=== PATIENT | female | born 1955 | race Caucasian/White ===

== ENCOUNTER 2018-07-23 20:27 | Observation (INO) ==
[2018-07-23] MEDS ORDERED: Sod Chloride 0.9% Inj 1,000 ML IV.SIG SCH ×2 (21:15→21:30)
--- NOTE | 2018-07-23 21:26 | ED ---
HPI General Chief Complaint: Altered Mental Status Stated Complaint: pt confused/evac Time Seen by Provider: 07/23/18 21:05 Source: EMS Mode of arrival: EMS Limitations: altered mental status History of Present Illness HPI narrative: Patient is 62-year-old female who was brought to the emergency room via EMS for evaluation of altered mental status. Patient was apparently found in bushes and was unable to answer any questions. Patient was brought to the emergency room as she has no idea on her, and patient does not who she is. Patient is unable to provide HPI, she cannot tell me her name and she just mumbles at bedside Related Data Home Medications Medication Instructions Recorded Confirmed benztropine 1 mg PO BID 07/23/18 07/23/18 demeclocycline 300 mg PO Q12H 07/23/18 07/23/18 fluoxetine 20 mg PO Q8AM 07/23/18 07/23/18 lisinopril 2.5 mg PO Q8AM 07/23/18 07/23/18 omeprazole 20 mg PO DAILY 07/23/18 07/23/18 risperidone [Risperdal] 1 mg PO Q8AM 07/23/18 07/23/18 risperidone [Risperdal] 4 mg PO HS 07/23/18 07/23/18 tiotropium bromide [Spiriva with 1 cap INHALATION DAILY 07/23/18 07/23/18 HandiHaler] Allergies Allergy/AdvReac Type Severity Reaction Status Date / Time bee venom protein (honey bee) Allergy unknown Verified 07/23/18 23:25 [Bee sting] ibuprofen Allergy unknown Verified 07/23/18 23:25 Review of Systems ROS: all other systems reviewed are negative [facility] Medical History Medical History Medical history unknown (Acute) Surgical history unknown (Acute) Social History Social History Substance History: No History of Abuse Second Hand Smoke Exposure: No Smoking Status: Current every day smoker Tobacco Type: Cigarettes How Often Do You Have a Drink Containing Alcohol: Never Recent Travel in [facility] within the Last 8 Weeks: No Recent Out of Country Travel within the Last 8 Weeks: No Immunization History Tetanus Immunization: Unable to Assess Exam Narrative Exam Narrative: GENERAL: Confused, patient not alert or oriented x 3 SKIN: Focused skin assessment warm/dry. HEAD: Atraumatic. Normocephalic. EYES: Pupils equal and round. No scleral icterus. No injection or drainage. ENT: No nasal bleeding or discharge. Mucous membranes pink and moist. NECK: Trachea midline. No JVD. CARDIOVASCULAR: Regular rate and rhythm. No murmur appreciated. RESPIRATORY: No accessory muscle use. Clear to auscultation. Breath sounds equal bilaterally. GASTROINTESTINAL: Abdomen soft, non-tender, nondistended. Hepatic and splenic margins not palpable. MUSCULOSKELETAL: No obvious deformities. No clubbing. No cyanosis. No edema. NEUROLOGICAL: Awake and alert. PSYCHIATRIC: Flat mood and affect Course Initial Documented Vital Signs Temperature 97 F L 07/23/18 20:28 Pulse Rate 93 H 07/23/18 20:28 Respiratory Rate 18 07/23/18 20:28 Blood Pressure 201/107 H 07/23/18 20:28 Pulse Oximetry 99 07/23/18 20:28 Last Documented Vital Signs Temperature 98.8 F 07/25/18 17:18 Pulse Rate 90 07/25/18 17:18 Respiratory Rate 20 07/25/18 17:18 Blood Pressure 133/83 07/25/18 17:18 Pulse Oximetry 95 07/25/18 17:18 Medical Decision Making MDM Narrative Medical decision making narrative: During the course of the patients emergency department visit, the patients history, examination, and differential diagnosis were reviewed with the patient. The patient was placed on a vice president of software development with oximetry and frequent blood pressure monitoring. The patient had an IV access obtained and blood work sent for analysis. Patient has paperwork from [facility], call was made to [facility], they reported that patient was last seen at 1700, she signed herself out to go to the store, they did not realize that patient never came back. They will send her paperwork with her medical list and medication list. The patients laboratory studies were reviewed Radiology studies were reviewed [facility] did call back, reports that they started her on democlocyline and risperdol was adjusted today as she has history of paranoid schizophrenia - they now report that patient checked herself out of the living facility around 8:30AM to go get coffee and she never returned. Her hyponatremia is at baseline as per [facility]. patient will require admission to the hospital for observation for encephalopathy Medical Screen Exam Complete: Yes Emergency Medical Condition: Yes Differential Diagnosis Differential Diagnosis: Encephalopathy, drug abuse, electrolyte abnormality, intracranial hemorrhage, CVA, TIA Medical Records Medical records reviewed: Yes I reviewed the patient's medical records. Lab Data Lab results reviewed: Yes I reviewed the patient's lab results. Result diagrams: 07/24/18 04:05 07/25/18 06:17 Lab Results 07/23/18 07/23/18 07/23/18 Range/Units 20:55 20:55 20:55 WBC 12.2 H (4.0-11.0) th/mm3 RBC 3.82 L (4.00-5.30) mil/mm3 Hgb 11.9 (11.6-15.3) gm/dL Hct 34.5 L (35.0-46.0) % MCV 90.4 (80.0-100.0) fL MCH 31.2 (27.0-34.0) pg MCHC 34.5 (32.0-36.0) % RDW 14.2 (11.6-17.2) % Plt Count 226 (150-450) th/mm3 MPV 8.0 (7.0-11.0) fL Neut % (Auto) 82.3 H (16.0-70.0) % Lymph % (Auto) 11.7 (9.0-44.0) % Lincoln % (Auto) 5.3 (0.0-8.0) % Eos % (Auto) 0.5 (0.0-4.0) % Baso % (Auto) 0.2 (0.0-2.0) % Neut # (Auto) 10.1 H (1.8-7.7) th/mm3 Lymph # (Auto) 1.4 (1.0-4.8) th/mm3 Lincoln # (Auto) 0.6 (0.0-0.9) th/mm3 Eos # (Auto) 0.1 (0.0-0.4) th/mm3 Baso # (Auto) 0.0 (0.0-0.2) th/mm3 WBC Differential . Differential Comment Auto diff final PT 10.3 (9.8-11.6) sec INR 1.0 Ratio APTT 28.0 (23.4-31.7) sec Sodium 125 L (136-145) meq/L Potassium 4.4 (3.5-5.1) meq/L Chloride 93 L (98-107) meq/L Carbon Dioxide 21.2 (21.0-32.0) meq/L Anion Gap 11 (5-15) meq/L BUN 30 H (7-18) mg/dL Creatinine 1.49 H (0.50-1.00) mg/dL Estimated GFR 35 L (>89) mL/min Random Glucose 113 H (74-106) mg/dL Calcium 8.4 L (8.5-10.1) mg/dL Magnesium 1.6 (1.5-2.5) mg/dL Total Bilirubin 0.6 (0.2-1.0) mg/dL AST 22 (15-37) U/L ALT 22 (10-53) U/L Alkaline Phosphatase 83 (45-117) U/L Ammonia (11-32) mcmol/L Total Creatine Kinase 229 H (26-192) U/L CK-MB (CK-2) 2.2 (0.5-3.6) ng/mL CK-MB (CK-2) % 1.0 (0.0-4.0) % Troponin I Less than 0.02 L (0.02-0.05) ng/mL Total Protein 6.8 (6.4-8.2) g/dL Albumin 3.3 L (3.4-5.0) g/dL Urine Color (Yellw/Straw) Urine Clarity (Clear) Urine pH (5.0-8.5) Ur Specific Jonancy (1.002-1.035) Urine Protein (Neg-Trace) mg/dL Urine Glucose (UA) (Negative) mg/dL Urine Ketones (Negative) mg/dL Urine Occult Blood (Negative) Urine Nitrate (Negative) Urine Bilirubin (Negative) Urine Urobilinogen (Less than 2) mg/dL Ur Leukocyte Esterase (Negative) Urine RBC (0-3) /hpf Urine WBC (0-5) /hpf Ur Squamous Epith Cells (0-5) /hpf Amorphous Sediment (None) /hpf Hyaline Casts (0-3) /lpf Urine Mucus (Occasional) /lpf Micro UA Comment Ur Microscopic Review Urine Culture Comments Urine Opiates Screen (Neg) Ur Barbiturates Screen (Neg) Ur Amphetamines Screen (Neg) U Benzodiazepines Scrn (Neg) Urine Cocaine Screen (Neg) U Cannabinoids Screen (Neg) Serum Alcohol Less than 3 (0-5) mg/dL 07/23/18 07/23/18 07/23/18 Range/Units 21:20 22:15 22:15 WBC (4.0-11.0) th/mm3 RBC (4.00-5.30) mil/mm3 Hgb (11.6-15.3) gm/dL Hct (35.0-46.0) % MCV (80.0-100.0) fL MCH (27.0-34.0) pg MCHC (32.0-36.0) % RDW (11.6-17.2) % Plt Count (150-450) th/mm3 MPV (7.0-11.0) fL Neut % (Auto) (16.0-70.0) % Lymph % (Auto) (9.0-44.0) % Lincoln % (Auto) (0.0-8.0) % Eos % (Auto) (0.0-4.0) % Baso % (Auto) (0.0-2.0) % Neut # (Auto) (1.8-7.7) th/mm3 Lymph # (Auto) (1.0-4.8) th/mm3 Lincoln # (Auto) (0.0-0.9) th/mm3 Eos # (Auto) (0.0-0.4) th/mm3 Baso # (Auto) (0.0-0.2) th/mm3 WBC Differential Differential Comment PT (9.8-11.6) sec INR Ratio APTT (23.4-31.7) sec Sodium (136-145) meq/L Potassium (3.5-5.1) meq/L Chloride (98-107) meq/L Carbon Dioxide (21.0-32.0) meq/L Anion Gap (5-15) meq/L BUN (7-18) mg/dL Creatinine (0.50-1.00) mg/dL Estimated GFR (>89) mL/min Random Glucose (74-106) mg/dL Calcium (8.5-10.1) mg/dL Magnesium (1.5-2.5) mg/dL Total Bilirubin (0.2-1.0) mg/dL AST (15-37) U/L ALT (10-53) U/L Alkaline Phosphatase (45-117) U/L Ammonia Less than 10 L (11-32) mcmol/L Total Creatine Kinase (26-192) U/L CK-MB (CK-2) (0.5-3.6) ng/mL CK-MB (CK-2) % (0.0-4.0) % Troponin I (0.02-0.05) ng/mL Total Protein (6.4-8.2) g/dL Albumin (3.4-5.0) g/dL Urine Color Yellow (Yellw/Straw) Urine Clarity Hazy H (Clear) Urine pH 6.0 (5.0-8.5) Ur Specific Jonancy 1.008 (1.002-1.035) Urine Protein Negative (Neg-Trace) mg/dL Urine Glucose (UA) Negative (Negative) mg/dL Urine Ketones Negative (Negative) mg/dL Urine Occult Blood Large H (Negative) Urine Nitrate Negative (Negative) Urine Bilirubin Negative (Negative) Urine Urobilinogen Less than 2 (Less than 2) mg/dL Ur Leukocyte Esterase Negative (Negative) Urine RBC 86 H (0-3) /hpf Urine WBC 1 (0-5) /hpf Ur Squamous Epith Cells <1 (0-5) /hpf Amorphous Sediment Rare H (None) /hpf Hyaline Casts 1 (0-3) /lpf Urine Mucus Few H (Occasional) /lpf Micro UA Comment Cath-culture not ind Ur Microscopic Review Not Reportable Urine Culture Comments Cath-cult not ind Urine Opiates Screen Neg (Neg) Ur Barbiturates Screen Neg (Neg) Ur Amphetamines Screen Neg (Neg) U Benzodiazepines Scrn Neg (Neg) Urine Cocaine Screen Neg (Neg) U Cannabinoids Screen Neg (Neg) Serum Alcohol (0-5) mg/dL 07/24/18 07/24/18 07/24/18 Range/Units 04:05 04:05 12:49 WBC 8.2 (4.0-11.0) th/mm3 RBC 3.46 L (4.00-5.30) mil/mm3 Hgb 10.9 L (11.6-15.3) gm/dL Hct 30.8 L (35.0-46.0) % MCV 89.0 (80.0-100.0) fL MCH 31.6 (27.0-34.0) pg MCHC 35.5 (32.0-36.0) % RDW 13.7 (11.6-17.2) % Plt Count 202 (150-450) th/mm3 MPV 7.6 (7.0-11.0) fL Neut % (Auto) 65.7 (16.0-70.0) % Lymph % (Auto) 25.1 (9.0-44.0) % Lincoln % (Auto) 8.0 (0.0-8.0) % Eos % (Auto) 0.7 (0.0-4.0) % Baso % (Auto) 0.5 (0.0-2.0) % Neut # (Auto) 5.4 (1.8-7.7) th/mm3 Lymph # (Auto) 2.1 (1.0-4.8) th/mm3 Lincoln # (Auto) 0.7 (0.0-0.9) th/mm3 Eos # (Auto) 0.1 (0.0-0.4) th/mm3 Baso # (Auto) 0.0 (0.0-0.2) th/mm3 WBC Differential . Differential Comment Auto diff final PT (9.8-11.6) sec INR Ratio APTT (23.4-31.7) sec Sodium 133 L 134 L (136-145) meq/L Potassium 3.8 3.8 (3.5-5.1) meq/L Chloride 103 D 103 (98-107) meq/L Carbon Dioxide 22.7 24.5 (21.0-32.0) meq/L Anion Gap 7 7 (5-15) meq/L BUN 26 H 19 H (7-18) mg/dL Creatinine 1.10 H 1.25 H (0.50-1.00) mg/dL Estimated GFR 50 L 43 L (>89) mL/min Random Glucose 82 106 (74-106) mg/dL Calcium 8.0 L 8.0 L (8.5-10.1) mg/dL Magnesium (1.5-2.5) mg/dL Total Bilirubin (0.2-1.0) mg/dL AST (15-37) U/L ALT (10-53) U/L Alkaline Phosphatase (45-117) U/L Ammonia (11-32) mcmol/L Total Creatine Kinase (26-192) U/L CK-MB (CK-2) (0.5-3.6) ng/mL CK-MB (CK-2) % (0.0-4.0) % Troponin I (0.02-0.05) ng/mL Total Protein (6.4-8.2) g/dL Albumin (3.4-5.0) g/dL Urine Color (Yellw/Straw) Urine Clarity (Clear) Urine pH (5.0-8.5) Ur Specific Jonancy (1.002-1.035) Urine Protein (Neg-Trace) mg/dL Urine Glucose (UA) (Negative) mg/dL Urine Ketones (Negative) mg/dL Urine Occult Blood (Negative) Urine Nitrate (Negative) Urine Bilirubin (Negative) Urine Urobilinogen (Less than 2) mg/dL Ur Leukocyte Esterase (Negative) Urine RBC (0-3) /hpf Urine WBC (0-5) /hpf Ur Squamous Epith Cells (0-5) /hpf Amorphous Sediment (None) /hpf Hyaline Casts (0-3) /lpf Urine Mucus (Occasional) /lpf Micro UA Comment Ur Microscopic Review Urine Culture Comments Urine Opiates Screen (Neg) Ur Barbiturates Screen (Neg) Ur Amphetamines Screen (Neg) U Benzodiazepines Scrn (Neg) Urine Cocaine Screen (Neg) U Cannabinoids Screen (Neg) Serum Alcohol (0-5) mg/dL 07/25/18 Range/Units 06:17 WBC (4.0-11.0) th/mm3 RBC (4.00-5.30) mil/mm3 Hgb (11.6-15.3) gm/dL Hct (35.0-46.0) % MCV (80.0-100.0) fL MCH (27.0-34.0) pg MCHC (32.0-36.0) % RDW (11.6-17.2) % Plt Count (150-450) th/mm3 MPV (7.0-11.0) fL Neut % (Auto) (16.0-70.0) % Lymph % (Auto) (9.0-44.0) % Lincoln % (Auto) (0.0-8.0) % Eos % (Auto) (0.0-4.0) % Baso % (Auto) (0.0-2.0) % Neut # (Auto) (1.8-7.7) th/mm3 Lymph # (Auto) (1.0-4.8) th/mm3 Lincoln # (Auto) (0.0-0.9) th/mm3 Eos # (Auto) (0.0-0.4) th/mm3 Baso # (Auto) (0.0-0.2) th/mm3 WBC Differential Differential Comment PT (9.8-11.6) sec INR Ratio APTT (23.4-31.7) sec Sodium 133 L (136-145) meq/L Potassium 3.8 (3.5-5.1) meq/L Chloride 103 (98-107) meq/L Carbon Dioxide 21.7 (21.0-32.0) meq/L Anion Gap 8 (5-15) meq/L BUN 14 (7-18) mg/dL Creatinine 1.02 H (0.50-1.00) mg/dL Estimated GFR 55 L (>89) mL/min Random Glucose 65 L (74-106) mg/dL Calcium 8.3 L (8.5-10.1) mg/dL Magnesium 1.8 (1.5-2.5) mg/dL Total Bilirubin (0.2-1.0) mg/dL AST (15-37) U/L ALT (10-53) U/L Alkaline Phosphatase (45-117) U/L Ammonia (11-32) mcmol/L Total Creatine Kinase (26-192) U/L CK-MB (CK-2) (0.5-3.6) ng/mL CK-MB (CK-2) % (0.0-4.0) % Troponin I (0.02-0.05) ng/mL Total Protein (6.4-8.2) g/dL Albumin (3.4-5.0) g/dL Urine Color (Yellw/Straw) Urine Clarity (Clear) Urine pH (5.0-8.5) Ur Specific Jonancy (1.002-1.035) Urine Protein (Neg-Trace) mg/dL Urine Glucose (UA) (Negative) mg/dL Urine Ketones (Negative) mg/dL Urine Occult Blood (Negative) Urine Nitrate (Negative) Urine Bilirubin (Negative) Urine Urobilinogen (Less than 2) mg/dL Ur Leukocyte Esterase (Negative) Urine RBC (0-3) /hpf Urine WBC (0-5) /hpf Ur Squamous Epith Cells (0-5) /hpf Amorphous Sediment (None) /hpf Hyaline Casts (0-3) /lpf Urine Mucus (Occasional) /lpf Micro UA Comment Ur Microscopic Review Urine Culture Comments Urine Opiates Screen (Neg) Ur Barbiturates Screen (Neg) Ur Amphetamines Screen (Neg) U Benzodiazepines Scrn (Neg) Urine Cocaine Screen (Neg) U Cannabinoids Screen (Neg) Serum Alcohol (0-5) mg/dL Imaging Data Attestation: I personally reviewed and interpreted this imaging study as follows : Radiologist's impression: Chest X-Ray 07/23/18 21:07 CONCLUSION: Negative for an acute process Head CT 07/23/18 21:07 CONCLUSION: 1. Negative CT Head non contrast. . Discharge Plan Discharge Disposition Patient Disposition: 30 Still Patient Discharge Condition Condition: Stable Discharge Order Discharge Orders: Discharge Order (Routine); Ordered 07/25/18 Ordered By: Channing Guerrero Discharge Details Anticipated Discharge Date: 07/25/18 Diagnosis: Encephalopathy, Hyponatremia Physicians Team ED Provider: Cara Huffman Primary Care Provider: UNKNOWN, Attending Provider: Channing Guerrero Other Providers: [employer],Insurance ; [facility],Agency ; Guille Anderson Status ED Status: Left Department Discharge Information Discharge Date/Time: 07/24/18 11:28
--- NOTE | 2018-07-23 21:33 | XR ---
EXAM DATE: 07/23/2018 9:31 PM EST AGE/SEX: 62 years / Female INDICATIONS: Chest pain. CLINICAL DATA: This is the patient's initial encounter. Patient reports that signs and symptoms have been present for 1 day and indicates a pain score of 4/10. MEDICAL/SURGICAL HISTORY: None. None. COMPARISON: No prior exams available for comparison. FINDINGS: A single AP view of the chest demonstrates the lungs to be symmetrically aerated without evidence of mass, infiltrate or effusion. The cardiomediastinal contours are unremarkable. Osseous structures a re intact. CONCLUSION: Negative for an acute process Electronically signed by: Mike Callejas MD 07/23/2018 9:32 PM EST
[2018-07-23 21:43] LABS: Baso % (Auto) 0.2 % (0.0-2.0); Eos # (Auto) 0.1 th/mm3 (0.0-0.4); Eos % (Auto) 0.5 % (0.0-4.0); Hematocrit 34.5 % (35.0-46.0); Hemoglobin 11.9 gm/dL (11.6-15.3); Lymph # (Auto) 1.4 th/mm3 (1.0-4.8); Lymph % (Auto) 11.7 % (9.0-44.0); Mean Corpuscular HGB Conc 34.5 % (32.0-36.0); Mean Corpuscular Hemoglobin 31.2 pg (27.0-34.0); Mean Corpuscular Volume 90.4 fL (80.0-100.0); Mono # (Auto) 0.6 th/mm3 (0.0-0.9); Mono % (Auto) 5.3 % (0.0-8.0); Neut # (Auto) 10.1 th/mm3 (1.8-7.7); Neut % (Auto) 82.3 % (16.0-70.0); Platelet Count 226 th/mm3 (150-450); Red Blood Count 3.82 mil/mm3 (4.00-5.30); Red Cell Distribution Width 14.2 % (11.6-17.2); White Blood Count 12.2 th/mm3 (4.0-11.0)
[2018-07-23 21:50] LABS: Prothrombin Time 10.3 sec (9.8-11.6)
[2018-07-23 22:05] LABS: Albumin 3.3 g/dL (3.4-5.0); Anion Gap 11 meq/L (5-15); Blood Urea Nitrogen 30 mg/dL (7-18); Calcium 8.4 mg/dL (8.5-10.1); Carbon Dioxide 21.2 meq/L (21.0-32.0); Chloride 93 meq/L (98-107); Glomerular Filtration Rate 35 mL/min (>89); Glucose,Random 113 mg/dL (74-106); Magnesium 1.6 mg/dL (1.5-2.5); Potassium 4.4 meq/L (3.5-5.1); Sodium 125 meq/L (136-145)
[2018-07-23 22:06] LABS: Alanine Aminotransferase 22 U/L (10-53); Aspartate Aminotransferase 22 U/L (15-37)
[2018-07-23 22:10] LABS: Alkaline Phosphatase 83 U/L (45-117); Creatine Kinase 229 U/L (26-192); Total Protein 6.8 g/dL (6.4-8.2)
[2018-07-23 22:23] LABS: Creatine Kinase MB 2.2 ng/mL (0.5-3.6)
[2018-07-23 22:46] LABS: Amorphous Sediment,Urine Rare /hpf; Bilirubin,Urine Negative (Negative); Clarity,Urine Hazy (Clear); Color,Urine Yellow (Yellw/Straw); Glucose,Urine (UA) Negative (Negative); Hyaline Casts,Urine 1 /lpf (0-3); Leukocyte Esterase,Urine Negative (Negative); Mucus,Urine Few /lpf (Occasional); Nitrite,Urine Negative (Negative); Specific Gravity,Urine 1.008 (1.002-1.035); Squamous Epithelial Cell,Urine <1 /hpf (0-5)
[2018-07-23 22:48] LABS: Amphetamine Screen,Urine Neg (Neg); Barbiturate Screen,Urine Neg (Neg); Cannabinoid Screen,Urine Neg (Neg); Cocaine Screen,Urine Neg (Neg)
[2018-07-23 22:49] LABS: Opiate Screen,Urine Neg (Neg)
--- NOTE | 2018-07-23 23:13 | CT ---
EXAM DATE: 07/23/2018 11:03 PM EST AGE/SEX: 62 years / Female INDICATIONS: Altered mental status. CLINICAL DATA: This is the patient's initial encounter. Patient reports that signs and symptoms have been present for 1 day and indicates a pain score of Nonresponsive. MEDICAL/SURGICAL HISTORY: Non-responsive. Non-responsive. RADIATION DOSE: 34.78 CTDI (mGy) COMPARISON: No prior exams available for comparison. TECHNIQUE: CT of the head without contrast. Using automated exposure control and adjustment of the mA and/or kV according to patient size, radiation dose was kept as low as reasonably achievable to ob tain optimal diagnostic quality images. DICOM format image data is available electronically for revi ew and comparison. FINDINGS: Cerebrum: The ventricles are normal for age. No evidence of midline shift, mass lesion, hemorrhage or acute infarction. No extraaxial fluid collections are seen. Posterior Fossa: The cerebellum and brainstem are intact. The 4th ventricle is midline. The cerebe llopontine angle is unremarkable. Extracranial: The visualized portion of the orbits is intact. Skull: The calvaria is intact. No evidence of skull fracture. CONCLUSION: 1. Negative CT Head non contrast. . Electronically signed by: David Aviles MD 07/23/2018 11:12 PM EST
[2018-07-24] MEDS ORDERED: Acetaminophen 325 MG Tablet PO PRN (00:15)
[2018-07-24] MEDS ORDERED: Bisacodyl 10 MG Supp RECTAL PRN (00:15)
--- NOTE | 2018-07-24 00:25 | P.HPIM ---
History of Present Illness Service: [facility] Primary Care Physician: UNKNOWN Chief Complaint: Altered mental status History of Present Illness: Ms. Landis is a 62-year-old female with a history of anxiety, chronic obstructive pulmonary disease, chronic kidney disease, depressive disorder, congestive heart failure, hyperosmolar hyponatremia, insomnia, paranoid schizophrenia, and hypertension who presented to the emergency room on 2017 for evaluation of altered mental status. The patient is a resident at [facility] and reportedly signed herself out to get coffee at 8:30 AM. The facility did not realize that the patient had not come back until they were called from the emergency room physician. The patient recently was started on demeclocycline and also had Risperdal adjusted for history of paranoid schizophrenia. Patient seen in ER with daughter at bedside. Patient's daughter indicates that her mother is in an FDC because of schizophrenia and needs assistance with medication management but has been able to function well. She spoke with her two days ago and she was in her normal state of health. At the time of my visit , the patient has is demonstrating tremors, cannot tell me her name or how she got here or where she is, she is also demonstrating excessive eye blinking and her speech seems stuttered. The patient denies any recent illness but she is a poor historian at the time of my visit. According to the ER nurse, the patient' s medications have recently been adjusted: Risperdal was increased around 11 to include AM dosing and demeclocycline was added about the same time. The patient is also on Cogentin but their is no history of Parkinson's disease per the patient's daughter. The patient's daughter indicates that "every time I turn around, they are adding a new medication". . Review of Systems unobtainable due to mental condition PMFSH - History History Provided By: Patient - Medical History Medical History: Medical History (Last Updated 07/24/18 @ 00:11 by ELIAS Yu) Anxiety disorder Bronchitis, chronic obstructive Chronic kidney disease (CKD) Depressive disorder Heart failure Hypo-osmolar hyponatremia Insomnia Paranoid schizophrenia Primary hypertension Surgical history unknown Syncope and collapse - Surgical History Surgical History: Surgical History (Last Updated 07/24/18 @ 00:11 by ELIAS Yu) Surgical history unknown - Family History Family History: Family History (Last Updated 07/24/18 @ 00:11 by ELIAS Yu) Other Family history unknown - Social History I have reviewed the patient's Social History: Yes - Tobacco History Tobacco Use In Past 30 Days: Yes Smoking Status: Current every day smoker Tobacco Type: Cigarettes - Alcohol History How Often Do You Have a Drink Containing Alcohol: Unable to Obtain - Substance Use History Substance History: Unable to Obtain - Travel History Recent Travel in the [place] Within the Last 8 Weeks: No Recent Travel Out of the Country Within the Last 8 Weeks: No - Immunization History Tetanus Immunization: Unable to Assess Medications and Allergies Active Medications: Active Medications Sodium Chloride (Ns Flush) 2 ml IV.FLUSH PRN PRN PRN Reason: FLUSH AFTER USING IV ACCESS Allergies Allergy/AdvReac Type Severity Reaction Status Date / Time bee venom protein (honey bee) Allergy unknown Verified 07/23/18 23:25 [Bee sting] ibuprofen Allergy unknown Verified 07/23/18 23:25 Home Medications Medication Instructions Recorded Confirmed Type benztropine 1 mg PO BID 07/23/18 07/23/18 History demeclocycline 300 mg PO Q12H 07/23/18 07/23/18 History fluoxetine 20 mg PO Q8AM 07/23/18 07/23/18 History lisinopril 2.5 mg PO Q8AM 07/23/18 07/23/18 History omeprazole 20 mg PO DAILY 07/23/18 07/23/18 History risperidone [Risperdal] 1 mg PO Q8AM 07/23/18 07/23/18 History risperidone [Risperdal] 4 mg PO HS 07/23/18 07/23/18 History tiotropium bromide [Spiriva with 1 cap INHALATION DAILY 07/23/18 07/23/18 History HandiHaler] Exam Vital signs: Vital Signs 07/23/18 20:28 07/23/18 20:50 Temperature 97 F L 97.4 F L Pulse Rate 93 H 102 H Respiratory Rate 18 20 Blood Pressure 201/107 H 176/80 H Pulse Oximetry 99 100 Intake & Output 07/23/18 07/23/18 07/24/18 06:59 18:59 06:59 Intake Total 1999 Balance 1999 Weight 78.925 kg Intake: IV 1999 NS Inj 1,000 ML @ 1000 mls/hr 1999 IV.SIG BOLUS DEBBIE Rx#:[id number] Narrative: GENERAL: This is an older female patient who appears confused and somewhat disheveled. SKIN: No rashes. Cool and dry. HEAD: Atraumatic. Normocephalic. EYES: No scleral icterus. No injection or drainage. ENT: Nose without bleeding, purulent drainage. NECK: Trachea midline. No JVD or lymphadenopathy. CARDIOVASCULAR: Regular rate and rhythm without murmurs, gallops, or rubs. RESPIRATORY: Clear to auscultation. Breath sounds equal bilaterally. No wheezes , rales, or rhonchi. GASTROINTESTINAL: Abdomen soft, non-tender, nondistended. No guarding. MUSCULOSKELETAL: Extremities without clubbing, cyanosis, or edema. No calf tenderness. NEUROLOGICAL: Awake and alert. Patient is demonstrating tremors, cannot tell me her name or how she got here or where she is, she is also demonstrating excessive eye blinking and her speech seems stuttered. . Results - Labs CBC & Chem 7: 07/23/18 20:55 07/23/18 20:55 Labs: Short CBC 07/23/18 Range/Units 20:55 WBC 12.2 H (4.0-11.0) th/mm3 Hgb 11.9 (11.6-15.3) gm/dL Hct 34.5 L (35.0-46.0) % Plt Count 226 (150-450) th/mm3 BMP 07/23/18 20:55 Sodium 125 L Potassium 4.4 Chloride 93 L Carbon Dioxide 21.2 BUN 30 H Creatinine 1.49 H Calcium 8.4 L Cardiac Enzymes 07/23/18 Range/Units 20:55 Total Creatine Kinase 229 H (26-192) U/L CK-MB (CK-2) 2.2 (0.5-3.6) ng/mL Troponin I Less than 0.02 L (0.02-0.05) ng/mL Liver Function 07/23/18 Range/Units 20:55 Total Bilirubin 0.6 (0.2-1.0) mg/dL AST 22 (15-37) U/L ALT 22 (10-53) U/L Alkaline Phosphatase 83 (45-117) U/L Albumin 3.3 L (3.4-5.0) g/dL Urine 11/26/18 Range/Units 22:15 Urine Color Yellow (Yellw/Straw) Urine Clarity Hazy H (Clear) Urine pH 6.0 (5.0-8.5) Ur Specific [place] 1.008 (1.002-1.035) Urine Protein Negative (Neg-Trace) mg/dL Urine Glucose (UA) Negative (Negative) mg/dL - Imaging Impressions Chest X-Ray 07/23/18 21:07 CONCLUSION: Negative for an acute process Head CT 07/23/18 21:07 CONCLUSION: 1. Negative CT Head non contrast. . Caprini VTE Risk Assessment Caprini VTE Risk Assessment: Moderate/High Risk (score >= 2) Caprini Risk Assessment Model: Point Value = 1 Point Value = 2 Point Value = 3 Point Value = 5 Age 41-60 Minor surgery BMI > 25 kg/m2 Swollen legs Varicose veins or History of unexplained or recurrent spontaneous Oral contraceptives or hormone replacement Sepsis (< 1 month) Serious lung disease, including pneumonia (< 1 month) Abnormal pulmonary function Acute myocardial infarction Congestive heart failure (< 1 month) History of inflammatory bowel disease Medical patient at bed rest Age 61-74 Arthroscopic surgery Major open surgery (> 45 min) Laparoscopic surgery (> 45 min) Malignancy Confined to bed (> 72 hours) Immobilizing plaster cast Central venous access Age >= 75 History of VTE Family history of VTE Factor V Leiden Prothrombin [id number] Lupus anticoagulant Anticardiolipin antibodies Elevated serum homocysteine Heparin-induced thrombocytopenia Other congenital or acquired thrombophilia Stroke (< 1 month) Elective arthroplasty Hip, pelvis, or leg fracture Acute spinal cord injury (< 1 month) Prophylaxis Regimen: Total Risk Factor Score Risk Level Prophylaxis Regimen 0-1 Low Early ambulation 2 Moderate Order ONE of the following: *Sequential Compression Device (SCD) *Heparin 5000 units SQ BID 3-4 Higher Order ONE of the following medications: *Heparin 5000 units SQ TID *Enoxaparin/Lovenox 40 mg SQ daily (WT < 150 kg, CrCl > 30 mL/min) *Enoxaparin/Lovenox 30 mg SQ daily (WT < 150 kg, CrCl > 10-29 mL/min) *Enoxaparin/Lovenox 30 mg SQ BID (WT < 150 kg, CrCl > 30 mL/min) AND/OR *Sequential Compression Device (SCD) 5 or more Highest Order ONE of the following medications: *Heparin 5000 units SQ TID (Preferred with Epidurals) *Enoxaparin/Lovenox 40 mg SQ daily (WT < 150 kg, CrCl > 30 mL/min) *Enoxaparin/Lovenox 30 mg SQ daily (WT < 150 kg, CrCl > 10-29 mL/min) *Enoxaparin/Lovenox 30 mg SQ BID (WT < 150 kg, CrCl > 30 mL/min) AND *Sequential Compression Device (SCD) Assessment and Plan - Plan Ms. Landis is a 62-year-old female with a history of anxiety, chronic obstructive pulmonary disease, chronic kidney disease, depressive disorder, congestive heart failure, hyperosmolar hyponatremia, insomnia, paranoid schizophrenia, and hypertension who presented to the emergency room on 2017 for evaluation of altered mental status. Encephalopathy with involuntary muscle movements (though it's hard to know if this is behavioral - symptoms diminish somewhat when you speak with patient) -concern for polypharmacy with recent medication increase in antipsychotic medication -demonstrating tremors, she is also demonstrating excessive eye blinking and her speech seems stuttered. -Head CT negative -Chest x-ray negative for acute process -Urinalysis not consistent with UTI -Toxicology negative -Neurochecks every 4 hours -Hold Cogentin and Risperdal a.m. dose (I do not wish to abruptly stop without psychiatry consultation) to see if symptoms improve -Consult to psychiatry for assistance with medication adjustments -Consult to neurology - appreciate assistance in evaluating this patient's dystonic movements -Consider brain MRI Renal insufficiency -suspect acute on chronic secondary to dehydration -BUN 30, creatinine 1.49, estimated GFR 35 -IV fluid hydration with normal saline at 100 cc/h -Monitor I&O's -Avoid nephrotoxins Hyponatremia -Sodium 125 -at patient's baseline according to the emergency room physician -continue home Demeclocycline -Continue to monitor COPD -resume home spiriva -Add duo nebulizers as needed DVT prophylaxis -Heparin 5000 units subcu every 8 hours Discussed Condition With: Dr. Martin .
[2018-07-24] MEDS: Sod Chloride 0.9% Inj 1,000 ML IV.CONT SCH ×2 (00:50→09:28)
[2018-07-24] MEDS: Heparin - SQ 10,000 UNITS/ML Vial SQ SCH ×4 (00:53→21:38)
[2018-07-24 04:32] LABS: Baso % (Auto) 0.5 % (0.0-2.0); Eos # (Auto) 0.1 th/mm3 (0.0-0.4); Eos % (Auto) 0.7 % (0.0-4.0); Hematocrit 30.8 % (35.0-46.0); Hemoglobin 10.9 gm/dL (11.6-15.3); Lymph # (Auto) 2.1 th/mm3 (1.0-4.8); Lymph % (Auto) 25.1 % (9.0-44.0); Mean Corpuscular HGB Conc 35.5 % (32.0-36.0); Mean Corpuscular Hemoglobin 31.6 pg (27.0-34.0); Mean Platelet Volume 7.6 fL (7.0-11.0); Mono # (Auto) 0.7 th/mm3 (0.0-0.9); Neut # (Auto) 5.4 th/mm3 (1.8-7.7); Neut % (Auto) 65.7 % (16.0-70.0); Platelet Count 202 th/mm3 (150-450); Red Blood Count 3.46 mil/mm3 (4.00-5.30); Red Cell Distribution Width 13.7 % (11.6-17.2); White Blood Count 8.2 th/mm3 (4.0-11.0)
[2018-07-24 04:52] LABS: Carbon Dioxide 22.7 meq/L (21.0-32.0); Potassium 3.8 meq/L (3.5-5.1)
[2018-07-24] MEDS ORDERED: Lisinopril 5 MG Tablet PO SCH (08:00)
[2018-07-24] MEDS: Pantoprazole Sodium 20 MG DR Tablet PO SCH (09:28)
[2018-07-24] MEDS: Tiotropium Bromide 18 MCG/ACT Inhaler INH SCH (10:25)
[2018-07-24] MEDS: FLUoxetine 20 MG Capsule PO SCH (10:25)
--- NOTE | 2018-07-24 12:28 | P.PNIM ---
Subjective Interval history: Patient is not in any acute distress. She is able to hold a conversation however is slow responding to questions. Repeated blinking and tremor like movement of bilateral upper extremities noted on examination. Physical Exam Vital signs: Vital Signs 07/23/18 20:28 07/23/18 20:50 07/23/18 21:07 Temperature 97 F L 97.4 F L Pulse Rate 93 H 102 H Respiratory Rate 18 20 Blood Pressure 201/107 H 176/80 H Pulse Oximetry 99 100 100 07/24/18 00:15 07/24/18 03:45 07/24/18 06:00 Temperature 98.4 F Pulse Rate 100 H 95 H 99 H Respiratory Rate 20 20 20 Blood Pressure 157/89 H 171/83 H 123/94 H Pulse Oximetry 100 98 98 07/24/18 09:36 07/24/18 11:28 Temperature 98.1 F 98.9 F Pulse Rate 102 H 97 H Respiratory Rate 18 Blood Pressure 181/107 H 178/95 H Pulse Oximetry 98 100 Intake & Output 07/23/18 07/24/18 07/24/18 18:59 06:59 18:59 Intake Total 2200 / 2200 1000 / 1000 Output Total 1300 / 1300 Balance 900 / 900 1000 / 1000 Weight 78.925 kg Intake: IV 2000 / 2000 1000 / 1000 NS Inj 1,000 ML @ 100 mls/hr IV 1000 / 1000 .CONT .Q10H DEBBIE Rx#:[id number] NS Inj 1,000 ML @ 1000 mls/hr 2000 / 2000 IV.SIG BOLUS DEBBIE Rx#:[id number] Oral 200 / 200 Output: Urine Amount (Catheter) 1300 / 1300 Female External 0 / 0 Straight 1300 / 1300 Narrative: General patient in no acute distress, repeated blinking and uncontrollable movement noted of bilateral upper extremities. HEENT extraocular movements are intact, atraumatic, normocephalic Cardiovascular S1-S2 audible Respiratory clear to auscultation bilaterally Abdomen soft, nontender, nondistended, normal bowel sounds Extremities no edema 2+ distal pulses in bilateral upper and lower extremities Neuro patient is appropriate. She is alert and oriented x3. The patient can move all 4 extremities and sensation is intact bilaterally. No obvious neurological deficits other than repeated blinking and uncontrollable movements of her upper extremities noted. - Urinary Catheter Management Female External Cath placed during this visit: yes, but has since been removed by the nurse Reason for continuing: Not indwelling catheter Insertion date: 07/23/18 Insertion time: 22:17 Removal date: 07/23/18 Removal time: 23:30 Straight Cath placed during this visit: no Reason for continuing: Not indwelling catheter Results - Labs CBC & Chem 7: 07/24/18 04:05 07/24/18 04:05 Laboratory Results - last 24 hr 07/23/18 07/23/18 07/23/18 20:55 20:55 20:55 WBC 12.2 H RBC 3.82 L Hgb 11.9 Hct 34.5 L MCV 90.4 MCH 31.2 MCHC 34.5 RDW 14.2 Plt Count 226 MPV 8.0 Neut % (Auto) 82.3 H Lymph % (Auto) 11.7 [place] % (Auto) 5.3 Eos % (Auto) 0.5 Baso % (Auto) 0.2 Neut # (Auto) 10.1 H Lymph # (Auto) 1.4 [place] # (Auto) 0.6 Eos # (Auto) 0.1 Baso # (Auto) 0.0 WBC Differential . Differential Comment Auto diff final PT 10.3 INR 1.0 APTT 28.0 Sodium 125 L Potassium 4.4 Chloride 93 L Carbon Dioxide 21.2 Anion Gap 11 BUN 30 H Creatinine 1.49 H Estimated GFR 35 L Random Glucose 113 H Calcium 8.4 L Magnesium 1.6 Total Bilirubin 0.6 AST 22 ALT 22 Alkaline Phosphatase 83 Ammonia Total Creatine Kinase 229 H CK-MB (CK-2) 2.2 CK-MB (CK-2) % 1.0 Troponin I Less than 0.02 L Total Protein 6.8 Albumin 3.3 L Urine Color Urine Clarity Urine pH Ur Specific [place] Urine Protein Urine Glucose (UA) Urine Ketones Urine Occult Blood Urine Nitrate Urine Bilirubin Urine Urobilinogen Ur Leukocyte Esterase Urine RBC Urine WBC Ur Squamous Epith Cells Amorphous Sediment Hyaline Casts Urine Mucus Micro UA Comment Ur Microscopic Review Urine Culture Comments Urine Opiates Screen Ur Barbiturates Screen Ur Amphetamines Screen U Benzodiazepines Scrn Urine Cocaine Screen U Cannabinoids Screen Serum Alcohol Less than 3 07/23/18 07/23/18 07/23/18 21:20 22:15 22:15 WBC RBC Hgb Hct MCV MCH MCHC RDW Plt Count MPV Neut % (Auto) Lymph % (Auto) [place] % (Auto) Eos % (Auto) Baso % (Auto) Neut # (Auto) Lymph # (Auto) [place] # (Auto) Eos # (Auto) Baso # (Auto) WBC Differential Differential Comment PT INR APTT Sodium Potassium Chloride Carbon Dioxide Anion Gap BUN Creatinine Estimated GFR Random Glucose Calcium Magnesium Total Bilirubin AST ALT Alkaline Phosphatase Ammonia Less than 10 L Total Creatine Kinase CK-MB (CK-2) CK-MB (CK-2) % Troponin I Total Protein Albumin Urine Color Yellow Urine Clarity Hazy H Urine pH 6.0 Ur Specific [place] 1.008 Urine Protein Negative Urine Glucose (UA) Negative Urine Ketones Negative Urine Occult Blood Large H Urine Nitrate Negative Urine Bilirubin Negative Urine Urobilinogen Less than 2 Ur Leukocyte Esterase Negative Urine RBC 86 H Urine WBC 1 Ur Squamous Epith Cells <1 Amorphous Sediment Rare H Hyaline Casts 1 Urine Mucus Few H Micro UA Comment Cath-culture not ind Ur Microscopic Review Not Reportable Urine Culture Comments Cath-cult not ind Urine Opiates Screen Neg Ur Barbiturates Screen Neg Ur Amphetamines Screen Neg U Benzodiazepines Scrn Neg Urine Cocaine Screen Neg U Cannabinoids Screen Neg Serum Alcohol 07/24/18 07/24/18 04:05 04:05 WBC 8.2 RBC 3.46 L Hgb 10.9 L Hct 30.8 L MCV 89.0 MCH 31.6 MCHC 35.5 RDW 13.7 Plt Count 202 MPV 7.6 Neut % (Auto) 65.7 Lymph % (Auto) 25.1 [place] % (Auto) 8.0 Eos % (Auto) 0.7 Baso % (Auto) 0.5 Neut # (Auto) 5.4 Lymph # (Auto) 2.1 [place] # (Auto) 0.7 Eos # (Auto) 0.1 Baso # (Auto) 0.0 WBC Differential . Differential Comment Auto diff final PT INR APTT Sodium 133 L Potassium 3.8 Chloride 103 D Carbon Dioxide 22.7 Anion Gap 7 BUN 26 H Creatinine 1.10 H Estimated GFR 50 L Random Glucose 82 Calcium 8.0 L Magnesium Total Bilirubin AST ALT Alkaline Phosphatase Ammonia Total Creatine Kinase CK-MB (CK-2) CK-MB (CK-2) % Troponin I Total Protein Albumin Urine Color Urine Clarity Urine pH Ur Specific [place] Urine Protein Urine Glucose (UA) Urine Ketones Urine Occult Blood Urine Nitrate Urine Bilirubin Urine Urobilinogen Ur Leukocyte Esterase Urine RBC Urine WBC Ur Squamous Epith Cells Amorphous Sediment Hyaline Casts Urine Mucus Micro UA Comment Ur Microscopic Review Urine Culture Comments Urine Opiates Screen Ur Barbiturates Screen Ur Amphetamines Screen U Benzodiazepines Scrn Urine Cocaine Screen U Cannabinoids Screen Serum Alcohol - Imaging Impressions Chest X-Ray 07/23/18 21:07 CONCLUSION: Negative for an acute process Head CT 07/23/18 21:07 CONCLUSION: 1. Negative CT Head non contrast. . Assessment and Plan - Plan This patient is a 62-year-old female with a diagnosis of anxiety, chronic obstructive pulmonary disease, chronic kidney disease, depression, congestive heart failure, hyponatremia, insomnia, paranoid schizophrenia, and hypertension. The patient was recently started on demeclocycline and had her Risperdal dose adjusted as per documentation. The patient resides at [facility] and reportedly signed herself out to get coffee at approximately 8:30 AM yesterday. They did not realize that she had not returned until they were called by the emergency department. 1. Acute encephalopathy resolved 2. Involuntary movements, possibly extrapyramidal symptoms 3. Hyponatremia possibly secondary to dehydration 4. Acute kidney injury likely secondary to dehydration. The patient presents with the symptoms mentioned above. CT head negative. Urine toxicology negative. Urinalysis negative for UTI. As per documentation her Risperdal dose was recently adjusted. On my physical examination the patient is alert and oriented x3. She is slow to respond to questions however is very appropriate. As per documentation the patient was altered when she initially arrived to our hospital. Her acute encephalopathy has resolved. Labs showed a low serum sodium. Labs also showed an elevated serum creatinine. After the initiation of IV fluids the patient's serum sodium and serum creatinine have improved. We will continue IV fluids. The patient's acute encephalopathy possibly have been due to dehydration and hyponatremia. On examination today the patient has repeated blinking of her eyes and tremor- like activity in bilateral upper extremities. Her baseline is unknown to me however this appears to be new findings as of yesterday. Psychiatry has been consulted to evaluate the patient given her recent adjustment in medications. Risperdal was recently adjusted, this could possibly be the cause of the patient 's current symptoms. I will follow-up with psychiatry further recommendations. The patient's a.m. dose of Risperdal has been held. Continue p.m. dose for today. 5. Hypertension The patient's serum creatinine has improved. Blood pressure elevated. Continue lisinopril. Norvasc will be added to the patient's blood pressure medication regimen. Heparin for DVT prophylaxis.
[2018-07-24] MEDS ORDERED: Lisinopril 5 MG Tablet PO ONE (12:47)
[2018-07-24] MEDS: amLODIPine 5 MG Tablet PO SCH (13:20)
[2018-07-24 13:27] LABS: Carbon Dioxide 24.5 meq/L (21.0-32.0); Potassium 3.8 meq/L (3.5-5.1)
--- NOTE | 2018-07-24 15:42 | ECG ---
Date Performed: 07/23/2018 Time Performed: 22:04:41 PTAGE: 62 years EKG: SINUS TACHYCARDIA ABNORMAL RHYTHM ECG NO PREVIOUS TRACING DOCTOR: Carly Brooks Interpretating Date/Time 07/24/2018 15:40:05
[2018-07-24] MEDS: Sodium Chloride 0.45 % Inj 1,000 ML IV.CONT SCH (16:35)
[2018-07-25] MEDS: Sodium Chloride 0.45 % Inj 1,000 ML IV.CONT SCH ×4 (01:29→17:49)
[2018-07-25] MEDS: Heparin - SQ 10,000 UNITS/ML Vial SQ SCH ×2 (06:46→13:11)
[2018-07-25 07:20] LABS: Calcium 8.3 mg/dL (8.5-10.1); Carbon Dioxide 21.7 meq/L (21.0-32.0); Magnesium 1.8 mg/dL (1.5-2.5); Potassium 3.8 meq/L (3.5-5.1)
[2018-07-25] MEDS ORDERED: Lisinopril 5 MG Tablet PO SCH (09:00)
[2018-07-25] MEDS: amLODIPine 5 MG Tablet PO SCH (09:18)
[2018-07-25] MEDS: Pantoprazole Sodium 20 MG DR Tablet PO SCH (09:19)
[2018-07-25] MEDS: FLUoxetine 20 MG Capsule PO SCH (09:19)
[2018-07-25] MEDS: Tiotropium Bromide 18 MCG/ACT Inhaler INH SCH (09:21)
--- NOTE | 2018-07-25 11:25 | P.CONPSY ---
Provisional Diagnosis Admission Date: July 24, 2018 00:15 [place].: Schizophrenia, Anxiety History of Present Illness Service: ER Primary Care Provider: UNKNOWN Chief Complaint: Altered mental status History of Present Illness: The patient is a 62-year-old woman, domiciled in [facility], , but , with a psychiatric history of schizophrenia and anxiety, multiple psychiatric admissions, the last hospitalization was about 5 years ago, she [facility], she is on Risperdal 1 mg in the morning 4 mg at night, benztropine 1 mg twice daily, Prozac 20 mg, she denies previous suicide attempts, medical history of chronic obstructive pulmonary disease, chronic kidney disease, congestive heart failure , hyperosmolar hypernatremia and hypertension who presented to the emergency room on 07/23/2018 for evaluation of altered mental status. At [place] she reportedly signed herself out to get coffee at 8:30 AM. The facility did not realize that the patient had not come back until they were called from the emergency room physician. The patient recently was started on demeclocycline and also had Risperdal adjusted for history of paranoid schizophrenia. On Initial evaluation in the ER the patient has is demonstrating tremors, cannot tell me her name or how she got here or where she is, she is also demonstrating excessive eye blinking and her speech seems stuttered. The patient denies any recent illness but she is a poor historian at the time of my visit. According to the ER nurse, the patient's medications have recently been adjusted: Risperdal was increased around 07/09 to include AM dosing and demeclocycline was added about the same time. The patient was consulted to psychiatry to address mental status and to help with psychotropics. On my psychiatric evaluation today I find a patient who is calm, cooperative, with a soft and low volume speech, but logical and coherent. She says that she feels much better now. She says that she does not remember exactly what brought her to the hospital. She says that she has been taking her medications, has been in a good mood, denies anhedonia, hopelessness, helplessness, worthlessness, she denies suicidal and homicidal ideation, she denies visual and auditory hallucinations. The patient is oriented x3 at this moment. Denies problem paranoid, ideas of reference, thought control. No agitation, no aggressive behavior present at the moment. No tremors, no EPS present at the moment. Collateral from daughter, Tonya, [phone], who indicates that her mother is in an SENIOR CARE for about 5 years after being discharged from the last thigh of a psychiatric hospitalization due to schizophrenia and needs assistance with medication management but has been able to function well. She spoke with her two days ago and she was in her normal state of health. The patient's daughter indicates that "every time I turn around, they are adding a new medications in the [facility]. PPHx: with a psychiatric history of schizophrenia and anxiety, multiple psychiatric admissions, the last hospitalization was about 5 years ago, she [facility], she is on Risperdal 1 mg in the morning 4 mg at night, benztropine 1 mg twice daily, Prozac 20 mg, she denies previous suicide attempts PMHx: medical history of chronic obstructive pulmonary disease, chronic kidney disease, congestive heart failure, hyperosmolar hypernatremia and hypertension. Family Hx: no family psychiatric history Substance Hx: No use of illegal drugs or alcohol Social Hx: Patient was born in [place], she lives in [facility], she is but , supported by assisted benefits Review of Systems All other systems reviewed negative except as stated in HPI PMFSH - History History Provided By: Family Member - Medical History Medical History: Medical History (Last Updated 07/24/18 @ 06:33 by Sarah Cisse) Anxiety disorder Bronchitis, chronic obstructive Chronic kidney disease (CKD) Depressive disorder Extrapyramidal and movement disorder, unspecified Heart failure Hypo-osmolar hyponatremia Insomnia Paranoid schizophrenia Primary hypertension Surgical history unknown Syncope and collapse - Surgical History Surgical History: Surgical History (Last Updated 07/24/18 @ 00:11 by ELIAS Yu) Surgical history unknown - Family History Family History: Family History (Last Updated 07/24/18 @ 00:11 by ELIAS Yu) Other Family history unknown - Tobacco History Second Hand Smoke Exposure: No Tobacco Use In Past 30 Days: No Smoking Status: Current every day smoker Tobacco Type: Cigarettes - Alcohol History How Often Do You Have a Drink Containing Alcohol: Never - Substance Use History Substance History: No History of Abuse - Travel History Recent Travel in the [facility] Within the Last 8 Weeks: No Recent Travel Out of the Country Within the Last 8 Weeks: No - Immunization History Tetanus Immunization: Unable to Assess Hx Influenza Vaccine This Season: Unable to Assess Medications and Allergies Active Medications: Active Medications Acetaminophen (Tylenol) 650 mg PO Q4H PRN PRN Reason: Temp > 100.4 Albuterol (Duoneb Neb (Prn)) 1 ampul NEB Q2HR NEB PRN PRN Reason: SHORTNESS OF BREATH/WHEEZING Amlodipine Besylate (Norvasc) 5 mg PO DAILY [facility] Last Admin: 07/25/18 09:18 Dose: 5 mg Benztropine Mesylate (Cogentin) 1 mg PO BID [facility] Bisacodyl (Dulcolax Supp) 10 mg RECTAL DAILY PRN PRN Reason: SEVERE CONSITIPATION Demeclocycline HCl (Declomycin) 300 mg PO Q12H [facility] Last Admin: 07/25/18 09:19 Dose: 300 mg Fluoxetine HCl (Prozac) 20 mg PO Q24H [facility] Last Admin: 07/25/18 09:19 Dose: 20 mg Heparin Sodium (Porcine) (Heparin Inj) 5,000 units SQ Q8HR [facility] Last Admin: 07/25/18 06:46 Dose: Not Given Sodium Chloride (1/2 Normal Saline Inj) 1,000 mls @ 100 mls/hr IV.CONT .Q10H [facility] Last Admin: 07/25/18 09:19 Dose: Not Given Lisinopril (Prinivil) 5 mg PO DAILY [facility] Last Admin: 07/25/18 09:19 Dose: 5 mg Ondansetron HCl (Zofran Inj) 4 mg IV.PUSH Q6H PRN PRN Reason: NAUSEA OR VOMITING Pantoprazole Sodium (Protonix) 20 mg PO DAILY [facility] Last Admin: 07/25/18 09:19 Dose: 20 mg Risperidone (Risperdal) 1 mg PO Q24H [facility] Risperidone (Risperdal) 4 mg PO HS [facility] Last Admin: 07/24/18 21:38 Dose: 4 mg Sennosides (Senokot) 17.2 mg PO Q12H PRN PRN Reason: Moderate Constipation Sodium Chloride (Ns Flush) 2 ml IV.FLUSH PRN PRN PRN Reason: FLUSH AFTER USING IV ACCESS Tiotropium Black (Spiriva 18 Mcg Inh) 18 mcg INH DAILY [facility] Last Admin: 11/28/18 09:21 Dose: 18 mcg Allergies Allergy/AdvReac Type Severity Reaction Status Date / Time bee venom protein (honey bee) Allergy unknown Verified 07/23/18 23:25 [Bee sting] ibuprofen Allergy unknown Verified 07/23/18 23:25 Home Medications Medication Instructions Recorded Confirmed Type benztropine 1 mg PO BID 07/23/18 07/23/18 History demeclocycline 300 mg PO Q12H 07/23/18 07/23/18 History fluoxetine 20 mg PO Q8AM 07/23/18 07/23/18 History lisinopril 2.5 mg PO Q8AM 07/23/18 07/23/18 History omeprazole 20 mg PO DAILY 07/23/18 07/23/18 History risperidone [Risperdal] 1 mg PO Q8AM 07/23/18 07/23/18 History risperidone [Risperdal] 4 mg PO HS 07/23/18 07/23/18 History tiotropium bromide [Spiriva with 1 cap INHALATION DAILY 07/23/18 07/23/18 History HandiHaler] Exam Vital signs: Vital Signs 07/24/18 11:28 07/24/18 14:50 07/24/18 16:47 Temperature 98.9 F 98.5 F Pulse Rate 97 H 95 H 94 H Respiratory Rate 18 18 20 Blood Pressure 178/95 H 160/80 H 145/81 H Pulse Oximetry 100 96 07/24/18 20:00 07/25/18 00:00 07/25/18 04:00 Temperature 97.9 F 98.1 F 97.7 F Pulse Rate 93 H 86 81 Respiratory Rate 17 18 18 Blood Pressure 129/75 147/71 H 165/90 H Pulse Oximetry 97 97 07/25/18 08:36 07/25/18 08:39 Temperature 98.4 F Pulse Rate 88 Respiratory Rate 20 Blood Pressure 130/100 H Pulse Oximetry 97 99 Intake & Output 07/24/18 07/25/18 07/25/18 18:59 06:59 18:59 Intake Total 1600 / 1600 1620 / 1620 Output Total 700 / 700 Balance 1600 / 1600 920 / 920 Weight 78.9 kg Intake: IV 1600 / 1600 900 / 900 NS Inj 1,000 ML @ 100 mls/hr IV 1600 / 1600 .CONT .Q10H [facility] Rx#:[id number] 1/2 Normal Saline Inj 1,000 ML 900 / 900 @ 100 mls/hr IV.CONT .Q10H [facility] Rx#:[id number] Oral 720 / 720 Output: Urine 700 / 700 Other: # Voids 1 Weight On Admission 78.9 kg Narrative: No tremors, no EPS, no psychomotor agitation retardation, no catatonia - Constitutional no acute distress - Routine HEENT Exam Head: Present: normocephalic, atraumatic Eye: Present: EOMI ENT: Present: mucous membranes moist Mental Status Examination Appearance: Appropriate Consciousness: Alert Orientation: x4 Motor Activity: Normal gait Speech: Unremarkable Language: Adequate Fund of Knowledge: Adequate Attention and Concentration: Adequate Memory: Unremarkable Mood: Appropriate Affect: Appropriate Thought Process & Associations: Intact Thought Content: Appropriate Hallucination Type: None Delusion Type: None Suicidal Ideation: No Suicidal Plan: No Suicidal Intention: No Homicidal Ideation: No Homicidal Plan: No Homicidal Intention: No Insight: Adequate Judgment: Adequate Assessment and Plan - Assessment (1) Schizophrenia, chronic condition Code(s): F20.9 - Schizophrenia, unspecified Status: Acute - Plan Plan: At the moment of my psychiatric evaluation the patient does not present any neuropsychiatric symptoms that require an immediate psychiatric intervention. The patient denies symptomatology of depression, anxiety, hortensia or psychosis at the moment. She denies suicidal and homicidal ideation, she denies visual and auditory hallucinations. Patient is logical, coherent and relevant, oriented x3. Patient has a psychiatric history of schizophrenia, with multiple psychiatric hospitalizations, last hospitalization was about 5 years ago, she has been stable in current psychotropic regimen, Risperdal 1 mg in the morning, 4 mg at night, dose was recently adjusted as per daughter, benztropine 1 mg twice daily, Prozac 20 mg. Patient presented with AMS and tremors that could be related with EPS, but also secondary to underlying medical conditions. Patient does not seem to present any EPS symptoms at this moment. Risperdal can certainly have a side effect parkinsonism and even AMS, but benztropine 1 mg twice daily should be enough to treat the side effects. Continue current psychotropic regimen. Discussed potential changes with outpatient psychiatrist. patient does not have criteria for involuntary psychiatric admission at the moment. Support, motivational psych education provided. Consult appreciated. If any further question please contact me my cell phone or extension [phone]. Justification for Continued Inpatient Stay: No admission indicated
--- NOTE | 2018-07-25 11:43 | P.PNIM ---
Subjective Interval history: No acute distress in this patient today. Her encephalopathy appears to have resolved. Psychiatry has evaluated this patient does not feel that her antipsychotics are contributory to her encephalopathy. Physical therapy evaluation pending. Based on physical therapy evaluation will determine to where this patient may discharge. Physical Exam Vital signs: Vital Signs 07/24/18 14:50 07/24/18 16:47 07/24/18 20:00 Temperature 98.5 F 97.9 F Pulse Rate 95 H 94 H 93 H Respiratory Rate 18 20 17 Blood Pressure 160/80 H 145/81 H 129/75 Pulse Oximetry 96 97 07/25/18 00:00 07/25/18 04:00 07/25/18 08:36 Temperature 98.1 F 97.7 F Pulse Rate 86 81 Respiratory Rate 18 18 Blood Pressure 147/71 H 165/90 H Pulse Oximetry 97 97 07/25/18 08:39 Temperature 98.4 F Pulse Rate 88 Respiratory Rate 20 Blood Pressure 130/100 H Pulse Oximetry 99 Intake & Output 07/24/18 07/25/18 07/25/18 18:59 06:59 18:59 Intake Total 1600 / 1600 1620 / 1620 Output Total 700 / 700 Balance 1600 / 1600 920 / 920 Weight 78.9 kg Intake: IV 1600 / 1600 900 / 900 NS Inj 1,000 ML @ 100 mls/hr IV 1600 / 1600 .CONT .Q10H [facility] Rx#:[id number] 1/2 Normal Saline Inj 1,000 ML 900 / 900 @ 100 mls/hr IV.CONT .Q10H [facility] Rx#:[id number] Oral 720 / 720 Output: Urine 700 / 700 Other: # Voids 1 Weight On Admission 78.9 kg Narrative: GENERAL: NAD, A&Ox3 HEAD: Normocephalic. NECK: Supple, trachea midline. No lymphadenopathy. EYES: No scleral icterus. No injection or drainage. CARDIOVASCULAR: Regular rate and rhythm without murmurs, gallops, or rubs. RESPIRATORY: Breath sounds equal bilaterally. No accessory muscle use. GASTROINTESTINAL: Abdomen soft, non-tender, nondistended. MUSCULOSKELETAL: No cyanosis, or edema. SKIN: Warm and dry. NEURO: No focal neurological deficits. - Urinary Catheter Management Female External Cath placed during this visit: yes, but has since been removed by the nurse Reason for continuing: Not indwelling catheter Insertion date: 07/23/18 Insertion time: 22:17 Removal date: 07/23/18 Removal time: 23:30 Straight Cath placed during this visit: no Reason for continuing: Not indwelling catheter Results - Labs CBC & Chem 7: 07/24/18 04:05 07/25/18 06:17 Laboratory Results - last 24 hr 07/24/18 07/25/18 12:49 06:17 Sodium 134 L 133 L Potassium 3.8 3.8 Chloride 103 103 Carbon Dioxide 24.5 21.7 Anion Gap 7 8 BUN 19 H 14 Creatinine 1.25 H 1.02 H Estimated GFR 43 L 55 L Random Glucose 106 65 L Calcium 8.0 L 8.3 L Magnesium 1.8 Assessment and Plan - Plan 62-year-old female admitted secondary to acute encephalopathy Acute encephalopathy Resolved Fine motor tremor Unlikely EPS per psychiatry Continue present treatments Physical therapy evaluation Generalized Weakness PT evaluation prior to discharge Hyponatremia May have been related to dehydration Stabilized Acute kidney injury Related to dehydration Improved with IV hydration Hypertension Continue baseline treatment Continue lisinopril Follow blood pressures Continue Norvasc DVT prophylaxis Continue heparin
--- NOTE | 2018-07-25 14:56 | P.DS ---
Date of admission: 07/24/18 00:15 Primary care physician: UNKNOWN Brief History from admission: Ms. Landis is a 62-year-old female with a history of anxiety, chronic obstructive pulmonary disease, chronic kidney disease, depressive disorder, congestive heart failure, hyperosmolar hyponatremia, insomnia, paranoid schizophrenia, and hypertension who presented to the emergency room on 2017 for evaluation of altered mental status. The patient is a resident at [facility] and reportedly signed herself out to get coffee at 8:30 AM. The facility did not realize that the patient had not come back until they were called from the emergency room physician. The patient recently was started on demeclocycline and also had Risperdal adjusted for history of paranoid schizophrenia. Patient seen in ER with daughter at bedside. Patient's daughter indicates that her mother is in an RETIREMENT because of schizophrenia and needs assistance with medication management but has been able to function well. She spoke with her two days ago and she was in her normal state of health. At the time of my visit , the patient has is demonstrating tremors, cannot tell me her name or how she got here or where she is, she is also demonstrating excessive eye blinking and her speech seems stuttered. The patient denies any recent illness but she is a poor historian at the time of my visit. According to the ER nurse, the patient' s medications have recently been adjusted: Risperdal was increased around 07/09 to include AM dosing and demeclocycline was added about the same time. The patient is also on Cogentin but their is no history of Parkinson's disease per the patient's daughter. The patient's daughter indicates that "every time I turn around, they are adding a new medication". . DS: Summary Hospital Course: 62 year old female. Admit related to altered mental status and atypical behavior. Antipsychotics reviewed by psychiatry, but not apparent contribution from these. Patient's mental status has returned to baseline. Physical therapy evaluation completed, no recommendations for PT. Medically stable and clear for discharge back to prior SNF today. - Time Spent with Patient Total time spent providing and/or coordinating discharge services: Less than 30 minutes - Quality: VTE Deep Vein Thrombosis/Pulmonary Embolism Present on Admission: No Exam Vital signs: Vital Signs 07/24/18 16:47 07/24/18 20:00 07/25/18 00:00 Temperature 98.5 F 97.9 F 98.1 F Pulse Rate 94 H 93 H 86 Respiratory Rate 20 17 18 Blood Pressure 145/81 H 129/75 147/71 H Pulse Oximetry 96 97 97 07/25/18 04:00 07/25/18 08:36 07/25/18 08:39 Temperature 97.7 F 98.4 F Pulse Rate 81 88 Respiratory Rate 18 20 Blood Pressure 165/90 H 130/100 H Pulse Oximetry 97 99 07/25/18 12:35 Temperature 98.5 F Pulse Rate 84 Respiratory Rate 18 Blood Pressure 147/77 H Pulse Oximetry 97 Intake & Output 07/24/18 07/25/18 07/25/18 18:59 06:59 18:59 Intake Total 1600 / 1600 1620 / 1620 1000 / 1000 Output Total 700 / 700 Balance 1600 / 1600 920 / 920 1000 / 1000 Weight 78.9 kg Intake: IV 1600 / 1600 900 / 900 1000 / 1000 NS Inj 1,000 ML @ 100 mls/hr IV 1600 / 1600 .CONT .Q10H [facility] Rx#:[id number] 1/2 Normal Saline Inj 1,000 ML 900 / 900 1000 / 1000 @ 100 mls/hr IV.CONT .Q10H [facility] Rx#:[id number] Oral 720 / 720 Output: Urine 700 / 700 Other: # Voids 1 Weight On Admission 78.9 kg Results Procedures completed during hospitalization: None Labs on day of discharge: Labs from last 24 hours 07/25/18 06:17 Sodium 133 L Potassium 3.8 Chloride 103 Carbon Dioxide 21.7 Anion Gap 8 BUN 14 Creatinine 1.02 H Estimated GFR 55 L Random Glucose 65 L Calcium 8.3 L Magnesium 1.8 - Impressions ITS Impressions Chest X-Ray 07/23/18 21:07 CONCLUSION: Negative for an acute process Head CT 07/23/18 21:07 CONCLUSION: 1. Negative CT Head non contrast. . Discharge Plan - Discharge Disposition Patient Disposition: Discharge to SNF - Discharge Condition Condition: Stable - Discharge Order Discharge Orders: Discharge Order (Routine); Ordered 07/25/18 Ordered By: Channing Guerrero - Discharge Details Anticipated Discharge Date: 07/25/18 - Physicians Team Primary Care Provider: UNKNOWN, Attending Provider: Channing Guerrero Other Providers: [employer],Insurance ; [facility],Agency ; Guille Anderson MD
[2018-07-25 17:19] VITALS: BP 133/83; PULSE 90; RESP 20; TEMP 98.8; O2SAT 95
== END 2018-07-25 18:33 ==
LOC: NEPD 20:27 → INTOOBSV 23:55 → NEDA 23:55 → NEDH 07-24 01:06 → NEPFCDU 07-24 11:26
PROVIDERS: ADMIT Hospitalist; ATTEND Hospitalist